=== PATIENT | male | born 1990 | race American Indian/Alaskan Native ===

== ENCOUNTER 2018-04-09 20:20 | Emergency (ER) | payer OTHER ==
[2018-04-09 20:26] VITALS: BP 135/84
[2018-04-09] MEDS ORDERED: MOTRIN PO ONE (22:11)
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
== END 2018-04-09 22:49 | disposition left against medical advice (07) ==
LOC: ED 20:20
DX: M54.2 Cervicalgia (principal); M54.5 Low back pain
CPT/HCPCS: 72040; 72100; 99283